=== PATIENT | female | born 1955 | race Caucasian/White ===

== ENCOUNTER → 2018-07-09 | Outpatient (CLI) | payer BC | LOC: COL.RAD 14:07 | DX: M25.552 Pain in left hip (principal) | CPT/HCPCS: J3301; Q9967 ==

== ENCOUNTER → 2018-10-15 | Outpatient (CLI) | payer BC | LOC: COL.RAD 11:39 | DX: M25.552 Pain in left hip (principal) | CPT/HCPCS: J3301; Q9967 ==

== ENCOUNTER → 2019-01-01 | Outpatient (CLI) | payer BC | LOC: COL.RAD 08:05 | DX: M16.12 Unilateral primary osteoarthritis, left hip (principal) | CPT/HCPCS: J3301; Q9967 ==